=== PATIENT | female | born 1995 | race Caucasian/White ===

== ENCOUNTER 2019-11-25 17:47 | Inpatient (IN) | payer MEDICAID, OTHER ==
[2019-11-25] MEDS ORDERED: IBUPROFEN 600 MG TAB PO STA (18:07)
--- NOTE | 2019-11-25 18:23 | ED ---
Abdominal Pain HPI - General Chief Complaint: Abdominal Pain Stated Complaint: appendicitis/transfer Time Seen by Provider: 11/25/19 17:50 Source: EMS Mode of arrival: EMS - History of Present Illness Initial Comments: The patient is a 24-year-old female who presents as a transfer from [facility]. She arrived there with complaints of abdominal pain, nausea, vomiting, diarrhea since 5 AM this morning. She has pain near her umbilicus which goes down to the right lower quadrant. Pain is graded as 9 out of 10. She had several episodes of nonbilious, and nonbloody vomiting. She had a CT of [facility] which demonstrated acute appendicitis. They did give her D ilmilli Zosyn and was transferred to our facility as they did not have surgical capabilities. The patient arrives to me stating that her pain is 5 out of 10. She is tachycardic and febrile. She denies concern for . No abnormal vaginal bleeding or discharge. Last meal was 5 PM last night. She denies any headaches or visual changes. No cough or hemoptysis. Denies dysuria, hematuria voiding. There are no alleviating, precipitating or modifying factors - Related Data Home Medications Medication Instructions Recorded Confirmed Ranitidine HCl [Zantac] 150 mg PO DAILY PRN 11/25/19 11/25/19 Previous Rx's Medication Instructions Recorded Amoxic-Pot Clav 875-125Mg 1 tab PO Q12HR #10 tab 11/28/19 [Augmentin 875-125] HYDROcodone/APAP 5-325MG [[place] 1 tab PO Q6HR PRN #10 tab 11/28/19 5-325] Vancomycin Oral Solution 250 mg PO Q6HR #240 ml 11/28/19 Allergies Allergy/AdvReac Type Severity Reaction Status Date / Time No Known Allergies Allergy Verified 11/25/19 22:02 Review of Systems ROS Statement: Those systems with pertinent positive or pertinent negative responses have been documented in the HPI. ROS Other: All systems not noted in ROS Statement are negative. Past Medical History Past Medical History: No Reported History History of Any Multi-Drug Resistant Organisms: None Reported Past Surgical History: No Surgical Hx Reported Past Psychological History: No Psychological Hx Reported Smoking Status: Current every day smoker Past Alcohol Use History: Occasional Past Drug Use History: None Reported, Marijuana - Past Family History Mother Family Medical History: No Reported History Father Family Medical History: No Reported History General Exam General appearance: alert, in no apparent distress Head exam: Present: atraumatic, normocephalic, normal inspection Eye exam: Present: normal appearance, PERRL, EOMI. Absent: scleral icterus, conjunctival injection, periorbital swelling ENT exam: Present: normal exam, mucous membranes moist Neck exam: Present: normal inspection. Absent: tenderness, meningismus, lymphadenopathy Respiratory exam: Present: normal lung sounds bilaterally. Absent: respiratory distress, wheezes, rales, rhonchi, stridor Cardiovascular Exam: Present: normal rhythm, tachycardia, normal heart sounds. Absent: systolic murmur, diastolic murmur, rubs, gallop, clicks GI/Abdominal exam: Present: soft, tenderness (RLQ), normal bowel sounds. Absent: distended, guarding, rebound, rigid Extremities exam: Present: normal inspection, full ROM, normal capillary refill. Absent: tenderness, pedal edema, joint swelling, calf tenderness Back exam: Present: normal inspection Neurological exam: Present: alert, oriented X3, CN II-XII intact Psychiatric exam: Present: normal affect, normal mood Skin exam: Present: warm, dry, intact, normal color. Absent: rash Course Vital Signs 11/25/19 17:51 Temperature 100.2 F H Pulse Rate 116 H Respiratory 20 Rate Blood Pressure 153/97 O2 Sat by Pulse 100 Oximetry Medical Decision Making - Medical Decision Making Upon arrival the patient's placed into room 11. A thorough history and physical exam was performed. I did review the patient's transfer record. They did get a CT of the abdomen and pelvis with IV contrast which demonstrates slight thickening of the appendix measuring up to 9 mm in diameter with slight increased attenuation of the periappendiceal fat. Labs reviewed and the patient white count 23,000. I did perform an EKG in the patient as she is tachycardic. I did order Motrin for the patients. I discussed the case with Dr. Bennett who agreed to take the admission. He does call the OR and the patient is taken within 1 hour of her arrival for surgery. - Lab Data Result diagrams: 11/28/19 09:40 11/26/19 07:42 Lab Results 11/25/19 11/25/19 11/25/19 Range/Units 18:06 18:06 18:06 WBC 10.9 H (3.8-10.6) k/uL RBC 5.59 H (3.80-5.40) m/uL Hgb 17.2 H (11.4-16.0) gm/dL Hct 50.0 H (34.0-46.0) % MCV 89.4 (80.0-100.0) fL MCH 30.8 (25.0-35.0) pg MCHC 34.5 (31.0-37.0) g/dL RDW 13.6 (11.5-15.5) % Plt Count 371 (150-450) k/uL Neutrophils % 86 % Lymphocytes % 10 % Monocytes % 2 % Eosinophils % 1 % Basophils % 0 % Neutrophils # 9.4 H (1.3-7.7) k/uL Lymphocytes # 1.0 (1.0-4.8) k/uL Monocytes # 0.3 (0-1.0) k/uL Eosinophils # 0.1 (0-0.7) k/uL Basophils # 0.0 (0-0.2) k/uL Sodium 141 (137-145) mmol/L Potassium 4.4 (3.5-5.1) mmol/L Chloride 108 H (98-107) mmol/L Carbon Dioxide 24 (22-30) mmol/L Anion Gap 9 mmol/L BUN 12 (7-17) mg/dL Creatinine 0.99 (0.52-1.04) mg/dL Est GFR (CKD-EPI)AfAm >90 (>60 ml/min/1.73 sqM) Est GFR (CKD-EPI)NonAf 79 (>60 ml/min/1.73 sqM) Glucose 110 H (74-99) mg/dL Plasma Lactic Acid Henry (0.7-2.0) mmol/L Calcium 9.1 (8.4-10.2) mg/dL Total Bilirubin 0.8 (0.2-1.3) mg/dL AST 45 H (14-36) U/L ALT 54 H (4-34) U/L Alkaline Phosphatase 120 (38-126) U/L Total Protein 7.2 (6.3-8.2) g/dL Albumin 4.2 (3.5-5.0) g/dL Urine HCG, Qual (Not Detectd) Coronavirus (PCR) Not Detected (Not Detectd) 11/25/19 11/26/19 11/26/19 Range/Units 18:59 07:42 07:42 WBC 16.5 H (3.8-10.6) k/uL RBC 4.97 (3.80-5.40) m/uL Hgb 14.9 (11.4-16.0) gm/dL Hct 44.6 (34.0-46.0) % MCV 89.8 (80.0-100.0) fL MCH 29.9 (25.0-35.0) pg MCHC 33.3 (31.0-37.0) g/dL RDW 13.5 (11.5-15.5) % Plt Count 284 (150-450) k/uL Neutrophils % 87 % Lymphocytes % 7 % Monocytes % 5 % Eosinophils % 1 % Basophils % 0 % Neutrophils # 14.4 H (1.3-7.7) k/uL Lymphocytes # 1.1 (1.0-4.8) k/uL Monocytes # 0.8 (0-1.0) k/uL Eosinophils # 0.1 (0-0.7) k/uL Basophils # 0.0 (0-0.2) k/uL Sodium 138 (137-145) mmol/L Potassium 4.2 (3.5-5.1) mmol/L Chloride 107 (98-107) mmol/L Carbon Dioxide 22 (22-30) mmol/L Anion Gap 9 mmol/L BUN 11 (7-17) mg/dL Creatinine 0.85 (0.52-1.04) mg/dL Est GFR (CKD-EPI)AfAm >90 (>60 ml/min/1.73 sqM) Est GFR (CKD-EPI)NonAf >90 (>60 ml/min/1.73 sqM) Glucose 125 H (74-99) mg/dL Plasma Lactic Acid Henry (0.7-2.0) mmol/L Calcium 8.7 (8.4-10.2) mg/dL Total Bilirubin 0.9 (0.2-1.3) mg/dL AST 26 (14-36) U/L ALT 38 H (4-34) U/L Alkaline Phosphatase 89 (38-126) U/L Total Protein 6.3 (6.3-8.2) g/dL Albumin 3.4 L (3.5-5.0) g/dL Urine HCG, Qual Not Detected (Not Detectd) Coronavirus (PCR) (Not Detectd) 11/26/19 11/27/19 Range/Units 09:35 11:47 WBC 12.7 H (3.8-10.6) k/uL RBC 4.40 (3.80-5.40) m/uL Hgb 13.3 (11.4-16.0) gm/dL Hct 39.9 (34.0-46.0) % MCV 90.8 (80.0-100.0) fL MCH 30.3 (25.0-35.0) pg MCHC 33.3 (31.0-37.0) g/dL RDW 13.6 (11.5-15.5) % Plt Count 281 (150-450) k/uL Neutrophils % 76 % Lymphocytes % 17 % Monocytes % 4 % Eosinophils % 2 % Basophils % 0 % Neutrophils # 9.6 H (1.3-7.7) k/uL Lymphocytes # 2.2 (1.0-4.8) k/uL Monocytes # 0.5 (0-1.0) k/uL Eosinophils # 0.2 (0-0.7) k/uL Basophils # 0.0 (0-0.2) k/uL Sodium (137-145) mmol/L Potassium (3.5-5.1) mmol/L Chloride (98-107) mmol/L Carbon Dioxide (22-30) mmol/L Anion Gap mmol/L BUN (7-17) mg/dL Creatinine (0.52-1.04) mg/dL Est GFR (CKD-EPI)AfAm (>60 ml/min/1.73 sqM) Est GFR (CKD-EPI)NonAf (>60 ml/min/1.73 sqM) Glucose (74-99) mg/dL Plasma Lactic Acid Henry 1.2 (0.7-2.0) mmol/L Calcium (8.4-10.2) mg/dL Total Bilirubin (0.2-1.3) mg/dL AST (14-36) U/L ALT (4-34) U/L Alkaline Phosphatase (38-126) U/L Total Protein (6.3-8.2) g/dL Albumin (3.5-5.0) g/dL Urine HCG, Qual (Not Detectd) Coronavirus (PCR) (Not Detectd) - EKG Data EKG Comments: EKG demonstrates a sinus tachycardia with ventricular rate of 117. NH interval 128. QRS 72. QTC of 438. Inverted T-wave in lead 3. No acute ST segment elevations. No signs of WPW of Brugada Disposition Clinical Impression: Appendicitis, Fever, Tachycardia Disposition: ADMITTED IP TO THIS HOSP Condition: Serious Is patient prescribed a controlled substance at d/c from ED?: No Decision to Admit Reason: Admit from EC Decision Date: 11/25/19 Decision Time: 18:51
[2019-11-25 18:33] LABS: Basophils % (A) 0 %; Eosinophils # (A) 0.1 k/uL (0-0.7); Eosinophils % (A) 1 %; HGB 17.2 gm/dL (11.4-16.0); Lymphocytes % (A) 10 %; MCH 30.8 pg (25.0-35.0); MCHC 34.5 g/dL (31.0-37.0); MCV 89.4 fL (80.0-100.0); Monocytes # (A) 0.3 k/uL (0-1.0); Monocytes % (A) 2 %; Neutrophils # (A) 9.4 k/uL (1.3-7.7); Neutrophils % (A) 86 %; Platelet Count 371 k/uL (150-450); RBC 5.59 m/uL (3.80-5.40); RDW 13.6 % (11.5-15.5); WBC 10.9 k/uL (3.8-10.6)
[2019-11-25 18:42] LABS: ALT 54 U/L (4-34); AST 45 U/L (14-36); African American GFR (CKD) >90 (>60 ml/min/1.73 sqM); Albumin 4.2 g/dL (3.5-5.0); Alkaline Phosphatase 120 U/L (38-126); Anion Gap 9 mmol/L; Blood Urea Nitrogen 12 mg/dL (7-17); Calcium 9.1 mg/dL (8.4-10.2); Carbon Dioxide 24 mmol/L (22-30); Chloride 108 mmol/L (98-107); Glucose 110 mg/dL (74-99); Non-African American GFR(CKD) 79 (>60 ml/min/1.73 sqM); Potassium 4.4 mmol/L (3.5-5.1); Sodium 141 mmol/L (137-145); Total Bilirubin 0.8 mg/dL (0.2-1.3); Total Protein 7.2 g/dL (6.3-8.2)
[2019-11-25] MEDS ORDERED: NALOXONE 0.4 MG/ML 1 ML VIAL IV PRN ×2 (18:52→19:49)
[2019-11-25] MEDS ORDERED: fentaNYL (PF) 50 MCG/ML 2 ML AMP ONE (19:04)
[2019-11-25] MEDS ORDERED: SUCCINYLCHOLINE CHLORIDE 100 MG/5 ML SYR IV ONE (19:04)
[2019-11-25] MEDS ORDERED: MIDAZOLAM 2 MG/2 ML VIAL ONE (19:04)
[2019-11-25] MEDS ORDERED: LIDOCAINE 1% INJ 10MG/ML (20 ML MDV) ONE (19:04)
[2019-11-25] MEDS ORDERED: HEPARIN SODIUM,PORCINE 5,000 UNIT/ML 1 ML VIAL ONE (19:04)
[2019-11-25] MEDS ORDERED: KETOROLAC 30 MG/ML 1 ML VIAL ONE (19:04)
[2019-11-25] MEDS ORDERED: ROCURONIUM BROMIDE 10 MG/ML 5 ML VIAL IV ONE (19:04)
[2019-11-25] MEDS ORDERED: NEOSTIGMINE 1 MG/ML 10 ML VIAL ONE (19:04)
[2019-11-25] MEDS ORDERED: PROPOFOL 10 MG/ML 20 ML VIAL IV ONE (19:04)
[2019-11-25] MEDS ORDERED: GLYCOPYRROLATE 0.2 MG/ML 2 ML VIAL ONE (19:04)
[2019-11-25] MEDS ORDERED: HYDROmorphone (PF) 1 MG/ML ONE (19:04)
[2019-11-25] MEDS ORDERED: LACTATED RINGERS 1,000 ML IV ONE ×2 (19:06→19:49)
--- NOTE | 2019-11-25 19:06 | P.GSHP ---
History of Present Illness H&P Date: 11/25/19 Chief Complaint: Right lower quadrant pain This a 24 she'll female who awoke at 5 AM this morning with right lower quadrant pain. Patient was transferred from outside hospital. She is found have acute appendicitis. Past Medical History Past Medical History: No Reported History History of Any Multi-Drug Resistant Organisms: None Reported Past Surgical History: No Surgical Hx Reported Past Psychological History: No Psychological Hx Reported Smoking Status: Current every day smoker Past Alcohol Use History: Occasional Past Drug Use History: None Reported, Marijuana Medications and Allergies Home Medications Medication Instructions Recorded Confirmed Type Meclizine [Antivert] 12.5 mg PO Q6H #10 tablet 07/07/15 07/09/15 Rx Metoclopramide HCl [Reglan] 10 mg PO Q6HR PRN #15 tablet 07/09/15 Rx Allergies Allergy/AdvReac Type Severity Reaction Status Date / Time No Known Allergies Allergy Verified 11/25/19 17:57 Surgical - Exam Vital Signs Temp Pulse Resp BP Pulse Ox 100.2 F H 116 H 20 153/97 100 11/25/19 17:51 11/25/19 17:51 11/25/19 17:51 11/25/19 17:51 11/25/19 17:51 - General well developed, no distress - Eyes PERRL - ENT normal pinna - Neck no masses - Respiratory normal expansion - Cardiovascular Rhythm: regular - Abdomen Marked right lower quadrant tenderness Abdomen: soft Results - Labs 11/25/19 18:06 11/25/19 18:06 Abnormal Lab Results - Last 24 Hours (Table) 11/25/19 11/25/19 Range/Units 18:06 18:06 WBC 10.9 H (3.8-10.6) k/uL RBC 5.59 H (3.80-5.40) m/uL Hgb 17.2 H (11.4-16.0) gm/dL Hct 50.0 H (34.0-46.0) % Neutrophils # 9.4 H (1.3-7.7) k/uL Chloride 108 H (98-107) mmol/L Glucose 110 H (74-99) mg/dL AST 45 H (14-36) U/L ALT 54 H (4-34) U/L Diabetes panel 11/25/19 Range/Units 18:06 Sodium 141 (137-145) mmol/L Potassium 4.4 (3.5-5.1) mmol/L Chloride 108 H (98-107) mmol/L Carbon Dioxide 24 (22-30) mmol/L BUN 12 (7-17) mg/dL Creatinine 0.99 (0.52-1.04) mg/dL Glucose 110 H (74-99) mg/dL Calcium 9.1 (8.4-10.2) mg/dL AST 45 H (14-36) U/L ALT 54 H (4-34) U/L Alkaline Phosphatase 120 (38-126) U/L Total Protein 7.2 (6.3-8.2) g/dL Albumin 4.2 (3.5-5.0) g/dL Calcium panel 11/25/19 Range/Units 18:06 Calcium 9.1 (8.4-10.2) mg/dL Albumin 4.2 (3.5-5.0) g/dL Pituitary panel 11/25/19 Range/Units 18:06 Sodium 141 (137-145) mmol/L Potassium 4.4 (3.5-5.1) mmol/L Chloride 108 H (98-107) mmol/L Carbon Dioxide 24 (22-30) mmol/L BUN 12 (7-17) mg/dL Creatinine 0.99 (0.52-1.04) mg/dL Glucose 110 H (74-99) mg/dL Calcium 9.1 (8.4-10.2) mg/dL Adrenal panel 11/25/19 Range/Units 18:06 Sodium 141 (137-145) mmol/L Potassium 4.4 (3.5-5.1) mmol/L Chloride 108 H (98-107) mmol/L Carbon Dioxide 24 (22-30) mmol/L BUN 12 (7-17) mg/dL Creatinine 0.99 (0.52-1.04) mg/dL Glucose 110 H (74-99) mg/dL Calcium 9.1 (8.4-10.2) mg/dL Total Bilirubin 0.8 (0.2-1.3) mg/dL AST 45 H (14-36) U/L ALT 54 H (4-34) U/L Alkaline Phosphatase 120 (38-126) U/L Total Protein 7.2 (6.3-8.2) g/dL Albumin 4.2 (3.5-5.0) g/dL - Imaging CT scan - abdomen: report reviewed (Thickened appendix) Assessment and Plan Assessment: Acute incised. We'll perform laparoscopic appendectomy
[2019-11-25] MEDS ORDERED: SODIUM CHLORIDE 0.9% 100 ML with ceFAZolin 2,000 MG IV ONE ×2 (19:27)
[2019-11-25] MEDS ORDERED: BUPIVACAIN-EPI 0.25%-1:200,000 30 ML VIAL SQ ONE (19:27)
[2019-11-25] MEDS ORDERED: HYDROcodone/APAP 5-325MG 1 EACH TAB PO PRN (19:49)
[2019-11-25] MEDS ORDERED: traMADol 50 MG TAB PO PRN (19:49)
[2019-11-25] MEDS ORDERED: HYDROmorphone 0.5 MG/0.5 ML SYRINGE IVP PRN (19:49)
--- NOTE | 2019-11-25 19:49 | P.OP ---
Date of Procedure: 11/25/19 Preoperative Diagnosis: Acute appendicitis Postoperative Diagnosis: Acute appendicitis Procedure(s) Performed: Laparoscopic appendectomy Anesthesia: BLESSING Surgeon: Ricardo Bennett Estimated Blood Loss (ml): 5 Pathology: other (Appendix) Condition: stable (.) Disposition: PACU Description of Procedure: The patient's placed on the operating table in the supine position. The patient received general anesthesia. The abdomen was prepped and draped in the usual sterile fashion. The skin was anesthetized 1% local Xylocaine at the trocar sites. Using an 11 blade the skin was incised at the umbilicus. The umbilicus was grasped with a [place] clamp and then a Veress needle was placed into the peritoneal cavity. Position of the Veress needle was confirmed with positive drop test. After adequate insufflation a 5 mm trocar was placed into the peritoneal cavity. The abdomen was further insufflated. And then the laparoscope was placed in the peritoneal cavity. Next a 5 mm trocar was placed in the midline suprapubic position. And then a 10 mm trocar was placed in the midline epigastric position. The patient was rotated with the right side up and in Trendelenburg. The appendix was visualized. The appendix appeared to be inflamed. There was a exudate on the appendix. There was some purulent fluid within the Peritoneal Cavity. This was irrigated and aspirated. The appendix was grasped and then using the Harmonic scissors the mesoappendix was divided. A PDS Endoloop was then placed around the base of the appendix. And then the appendix was divided using Harmonic scissors. The appendix was placed into an Endo Catch and brought out through the 10 mm trocar site. The abdomen was irrigated. There is no bleeding seen. The trochars withdrawn. The skin was closed interrupted 3-0 Monocryl suture. Dermabond dressing was applied. Patient was sent to recovery room in stable condition.
[2019-11-25] MEDS: KETOROLAC 30 MG/ML 1 ML VIAL IVP SCH (21:25)
[2019-11-25] MEDS: ONDANSETRON 4 MG/2 ML VIAL IVP PRN (21:27)
[2019-11-26] MEDS ORDERED: KETOROLAC 30 MG/ML 1 ML VIAL ONE (02:59)
[2019-11-26] MEDS: KETOROLAC 30 MG/ML 1 ML VIAL IVP SCH ×4 (07:41→20:32)
[2019-11-26] MEDS: PIPERACILLIN-TAZOBACTAM 3.375 GM in SODIUM CHLORIDE 0.9% 100 ML IVPB SCH ×5 (07:41→23:42)
[2019-11-26 08:10] LABS: Basophils % (A) 0 %; Eosinophils # (A) 0.1 k/uL (0-0.7); Eosinophils % (A) 1 %; HCT 44.6 % (34.0-46.0); HGB 14.9 gm/dL (11.4-16.0); Lymphocytes # (A) 1.1 k/uL (1.0-4.8); Lymphocytes % (A) 7 %; MCH 29.9 pg (25.0-35.0); MCHC 33.3 g/dL (31.0-37.0); MCV 89.8 fL (80.0-100.0); Mean Platelet Volume 7.2; Monocytes # (A) 0.8 k/uL (0-1.0); Monocytes % (A) 5 %; Neutrophils # (A) 14.4 k/uL (1.3-7.7); Neutrophils % (A) 87 %; Platelet Count 284 k/uL (150-450); RBC 4.97 m/uL (3.80-5.40); RDW 13.5 % (11.5-15.5); WBC 16.5 k/uL (3.8-10.6)
[2019-11-26 08:29] LABS: ALT 38 U/L (4-34); AST 26 U/L (14-36); African American GFR (CKD) >90 (>60 ml/min/1.73 sqM); Albumin 3.4 g/dL (3.5-5.0); Alkaline Phosphatase 89 U/L (38-126); Anion Gap 9 mmol/L; Blood Urea Nitrogen 11 mg/dL (7-17); Calcium 8.7 mg/dL (8.4-10.2); Carbon Dioxide 22 mmol/L (22-30); Chloride 107 mmol/L (98-107); Glucose 125 mg/dL (74-99); Non-African American GFR(CKD) >90 (>60 ml/min/1.73 sqM); Potassium 4.2 mmol/L (3.5-5.1); Sodium 138 mmol/L (137-145); Total Bilirubin 0.9 mg/dL (0.2-1.3); Total Protein 6.3 g/dL (6.3-8.2)
[2019-11-26] MEDS: ENOXAPARIN 40 MG/0.4 ML SYRINGE SQ SCH (08:49)
[2019-11-26] MEDS ORDERED: LACTATED RINGERS 1,000 ML IV SCH (10:30)
[2019-11-26] MEDS: SODIUM CHLORIDE 0.9% 1,000 ML IV SCH ×2 (10:45→20:33)
--- NOTE | 2019-11-26 11:34 | P.PN ---
Progress Note - Text Progress Note Date: 11/26/19 The patient's postoperative day 1 from laparoscopic appendectomy. Patient had significant inflammatory changes of her appendix. With evidence of microperforation. On exam her vital signs appear stable. Her abdomen soft. Her incisions are clean and intact. Status post laparoscopic appendectomy. Patient continue receive IV antibiotic. The patient the risk of postoperative abscess. Her white count 16.5.
--- NOTE | 2019-11-26 13:33 | P.CONS ---
History of Present Illness - Reason for Consult Ruptured appendix - History of Present Illness Patient is a pleasant 74-year-old obese female came in with compensative right lower quadrant abdominal pain severe sharp in nature along with the nausea vomiting which happened yesterday and patient is found to have appendicitis underwent laparotomy found to have a ruptured appendix with peritonitis patient is presently on Zosyn patient didn't pass gas yet, didn't move her bowel yet pain is significantly well controlled at this time. Review of Systems REVIEW OF SYSTEMS: CONSTITUTIONAL: No fever, no malaise, no fatigue. HEENT: No recent visual problems or hearing problems. Denied any sore throat. CARDIOVASCULAR: No chest pain, orthopnea, PND, no palpitations, no syncope. PULMONARY: No shortness of breath, no cough, no hemoptysis. GASTROINTESTINAL: As mentioned in HPI NEUROLOGICAL: No headaches, no weakness, no numbness. HEMATOLOGICAL: Denies any bleeding or petechiae. GENITOURINARY: Denies any burning micturition, frequency, or urgency. MUSCULOSKELETAL/RHEUMATOLOGICAL: Denies any joint pain, swelling, or any muscle pain. ENDOCRINE: Denies any polyuria or polydipsia. The rest of the 14-point review of systems is negative. Past Medical History Past Medical History: No Reported History History of Any Multi-Drug Resistant Organisms: None Reported Past Surgical History: No Surgical Hx Reported Past Psychological History: No Psychological Hx Reported Smoking Status: Current every day smoker Past Alcohol Use History: Occasional Past Drug Use History: None Reported, Marijuana - Past Family History Mother Family Medical History: No Reported History Father Family Medical History: No Reported History Medications and Allergies Home Medications Medication Instructions Recorded Confirmed Type Ranitidine HCl [Zantac] 150 mg PO DAILY PRN 11/25/19 11/25/19 History Allergies Allergy/AdvReac Type Severity Reaction Status Date / Time No Known Allergies Allergy Verified 11/25/19 22:02 Physical Exam Vitals: Vital Signs Temp Pulse Pulse Pulse Resp BP BP 11/26/19 08:59 98.2 F 100 18 124/82 11/26/19 04:55 98.2 F 105 H 18 104/64 11/26/19 00:32 92 18 103/71 11/25/19 23:32 98.2 F 87 18 119/70 11/25/19 22:32 82 18 101/60 11/25/19 22:02 95 20 122/77 11/25/19 21:33 80 18 120/74 11/25/19 21:17 78 18 130/83 11/25/19 21:02 73 20 126/76 11/25/19 20:47 98.6 F 91 20 129/82 11/25/19 20:32 106 H 18 132/83 11/25/19 20:30 77 16 122/74 11/25/19 20:15 89 16 134/65 11/25/19 19:57 97.1 F L 16 133/62 11/25/19 18:49 106 H 22 158/92 11/25/19 17:51 100.2 F H 116 H 20 153/97 Pulse Ox 11/26/19 08:59 92 L 11/26/19 04:55 97 11/26/19 00:32 96 11/25/19 23:32 94 L 11/25/19 22:32 93 L 11/25/19 22:02 94 L 11/25/19 21:33 94 L 11/25/19 21:17 94 L 11/25/19 21:02 94 L 11/25/19 20:47 93 L 11/25/19 20:32 93 L 11/25/19 20:30 99 11/25/19 20:15 94 L 11/25/19 19:57 96 11/25/19 18:49 99 11/25/19 17:51 100 Intake and Output 11/25/19 11/26/19 11/26/19 22:59 06:59 14:59 Intake Total 800 350 Output Total 5 200 100 Balance 795 -200 250 Intake: IV 800 Oral 350 Output: Urine 200 100 Estimated Blood Loss 5 Other: # Voids 1 Weight 122.47 kg PHYSICAL EXAMINATION: GENERAL: The patient is alert and oriented x3, not in any acute distress. Obese HEENT: Pupils are round and equally reacting to light. EOMI. No scleral icterus. No conjunctival pallor. Normocephalic, atraumatic. No pharyngeal erythema. No thyromegaly. CARDIOVASCULAR: S1 and S2 present. No murmurs, rubs, or gallops. PULMONARY: Chest is clear to auscultation, no wheezing or crackles. ABDOMEN: As mentioned in HPI MUSCULOSKELETAL: No joint swelling or deformity. EXTREMITIES: No cyanosis, clubbing, or pedal edema. NEUROLOGICAL: Gross neurological examination did not reveal any focal deficits. SKIN: No rashes. Results CBC & Chem 7: 11/26/19 07:42 11/26/19 07:42 Labs: Abnormal Lab Results - Last 24 Hours (Table) 11/25/19 11/25/19 11/26/19 Range/Units 18:06 18:06 07:42 WBC 10.9 H 16.5 H (3.8-10.6) k/uL RBC 5.59 H (3.80-5.40) m/uL Hgb 17.2 H (11.4-16.0) gm/dL Hct 50.0 H (34.0-46.0) % Neutrophils # 9.4 H 14.4 H (1.3-7.7) k/uL Chloride 108 H (98-107) mmol/L Glucose 110 H (74-99) mg/dL AST 45 H (14-36) U/L ALT 54 H (4-34) U/L Albumin (3.5-5.0) g/dL 11/26/19 Range/Units 07:42 WBC (3.8-10.6) k/uL RBC (3.80-5.40) m/uL Hgb (11.4-16.0) gm/dL Hct (34.0-46.0) % Neutrophils # (1.3-7.7) k/uL Chloride (98-107) mmol/L Glucose 125 H (74-99) mg/dL AST (14-36) U/L ALT 38 H (4-34) U/L Albumin 3.4 L (3.5-5.0) g/dL Assessment and Plan Plan: -Acute appendicitis and ruptured appendix: Patient is already on IV fluids patient is status post appendectomy patient is on Zosyn which is appropriate. Patient's pain is well-controlled DVT prophylaxis as per primary service -Obesity -Nicotine abuse and marijuana use: Counseling was provided
--- NOTE | 2019-11-26 22:23 | P.CONS ---
History of Present Illness - Reason for Consult Consult date: 11/26/19 acute appendicitis Requesting physician: Ricardo Bennett - Chief Complaint abdominal pain and vomiting x 1 day - History of Present Illness Patient is a 24-year female presenting to the ER at [facility] last night as a transfer from [facility] with complaints of abdominal pain nausea and vomiting symptoms started on 5 in the morning patient says she woke up with this pain pain has been mostly in the periumbilical area also radiating to the right lower quadrant recently and the pain to be sharp almost 10 out of 10 with episode of vomiting patient did have a CT of abdominal pelvis completed in the hospital we did shows acute appendicitis patient is here dose of Dilaudid and Zosyn and subsequently was transferred to [facility] for further surgical management patient was evaluated by surgery taken to the OR last night the patient is status post laparoscopic appendectomy with no mention of any perforation patient has been treated with a Zosyn perioperatively infectious was consulted for further management of antibiotic therapy patient on presented to hospital have a fever of 100.2 subsequently afebrile white count was normal initially is up to 16.5 today: The patient was negative urine hCG was negative. Review of Systems Positive point has been mentioned in HPI rest of the systems are negative Past Medical History Past Medical History: No Reported History History of Any Multi-Drug Resistant Organisms: None Reported Past Surgical History: No Surgical Hx Reported Past Psychological History: No Psychological Hx Reported Smoking Status: Current every day smoker Past Alcohol Use History: Occasional Past Drug Use History: None Reported, Marijuana - Past Family History Mother Family Medical History: No Reported History Father Family Medical History: No Reported History Medications and Allergies Home Medications Medication Instructions Recorded Confirmed Type Ranitidine HCl [Zantac] 150 mg PO DAILY PRN 11/25/19 11/25/19 History Allergies Allergy/AdvReac Type Severity Reaction Status Date / Time No Known Allergies Allergy Verified 11/25/19 22:02 Physical Exam Vitals: Vital Signs Temp Pulse Pulse Pulse Resp BP BP 11/26/19 13:51 98.4 F 80 20 141/80 11/26/19 08:59 98.2 F 100 18 124/82 11/26/19 04:55 98.2 F 105 H 18 104/64 11/26/19 00:32 92 18 103/71 11/25/19 23:32 98.2 F 87 18 119/70 11/25/19 22:32 82 18 101/60 11/25/19 22:02 95 20 122/77 11/25/19 21:33 80 18 120/74 11/25/19 21:17 78 18 130/83 11/25/19 21:02 73 20 126/76 11/25/19 20:47 98.6 F 91 20 129/82 11/25/19 20:32 106 H 18 132/83 11/25/19 20:30 77 16 122/74 11/25/19 20:15 89 16 134/65 11/25/19 19:57 97.1 F L 16 133/62 11/25/19 18:49 106 H 22 158/92 11/25/19 17:51 100.2 F H 116 H 20 153/97 Pulse Ox 11/26/19 13:51 95 11/26/19 08:59 92 L 11/26/19 04:55 97 11/26/19 00:32 96 11/25/19 23:32 94 L 11/25/19 22:32 93 L 11/25/19 22:02 94 L 11/25/19 21:33 94 L 11/25/19 21:17 94 L 11/25/19 21:02 94 L 11/25/19 20:47 93 L 11/25/19 20:32 93 L 11/25/19 20:30 99 11/25/19 20:15 94 L 11/25/19 19:57 96 11/25/19 18:49 99 11/25/19 17:51 100 Intake and Output 11/26/19 11/26/19 11/26/19 06:59 14:59 22:59 Intake Total 770 Output Total 200 550 Balance -200 220 Intake: Oral 770 Output: Urine 200 550 GENERAL DESCRIPTION: Middle-aged female lying in bed, no distress. No tachypnea or accessory muscle of respiration use. HEENT: Shows Pallor , no scleral icterus. Oral mucous membrane is dry. NECK: Trachea central, no thyromegaly. LUNGS: Unlabored breathing. Clear to auscultation anteriorly. No wheeze or crackle. HEART: S1, S2, regular rate and rhythm. ABDOMEN: Soft, mild lower quadrant tenderness , guarding or rigidity EXTREMITIES: No edema of feet. SKIN: No rash, no masses palpable. NEUROLOGICAL: The patient is awake, alert, oriented x3, mood and affect normal. Results CBC & Chem 7: 11/26/19 07:42 11/26/19 07:42 Labs: Abnormal Lab Results - Last 24 Hours (Table) 11/25/19 11/25/19 11/26/19 Range/Units 18:06 18:06 07:42 WBC 10.9 H 16.5 H (3.8-10.6) k/uL RBC 5.59 H (3.80-5.40) m/uL Hgb 17.2 H (11.4-16.0) gm/dL Hct 50.0 H (34.0-46.0) % Neutrophils # 9.4 H 14.4 H (1.3-7.7) k/uL Chloride 108 H (98-107) mmol/L Glucose 110 H (74-99) mg/dL AST 45 H (14-36) U/L ALT 54 H (4-34) U/L Albumin (3.5-5.0) g/dL 11/26/19 Range/Units 07:42 WBC (3.8-10.6) k/uL RBC (3.80-5.40) m/uL Hgb (11.4-16.0) gm/dL Hct (34.0-46.0) % Neutrophils # (1.3-7.7) k/uL Chloride (98-107) mmol/L Glucose 125 H (74-99) mg/dL AST (14-36) U/L ALT 38 H (4-34) U/L Albumin 3.4 L (3.5-5.0) g/dL Assessment and Plan Assessment: patient present hospital with acute appendicitis in this patient status post laparoscopic appendectomy with evidence of any perforation or second peritonitis the patient has not been antibiotic in the recent past more likely will need to cover for enteric gram-negative both aerobes and anaerobes such as E. coli and related pathogen (1) Appendicitis Current Visit: Yes Status: Acute Code(s): K37 - UNSPECIFIED APPENDICITIS SNOMED Code(s): 86293793 Plan: 1-we will continue patient on Zosyn 3.375 g every 8 hours while inpatient and transitioned over antibiotic on discharge 2-gentle IV fluid We will follow on clinical condition and cultures to further adjust medication if needed Thank you for this consultation we will follow the patient along with you Time with Patient: Greater than 30
[2019-11-26] MEDS: ACETAMINOPHEN TAB 325 MG TAB PO PRN (23:42)
[2019-11-27] MEDS: KETOROLAC 30 MG/ML 1 ML VIAL IVP SCH ×3 (03:53→16:30)
[2019-11-27] MEDS: SODIUM CHLORIDE 0.9% 1,000 ML IV SCH ×2 (06:49→19:55)
[2019-11-27] MEDS: PIPERACILLIN-TAZOBACTAM 3.375 GM in SODIUM CHLORIDE 0.9% 100 ML IVPB SCH ×2 (08:27→16:40)
[2019-11-27] MEDS: ENOXAPARIN 40 MG/0.4 ML SYRINGE SQ SCH (08:28)
--- NOTE | 2019-11-27 11:25 | P.PN ---
Subjective Progress Note Date: 11/27/19 Principal diagnosis: - Reason for Consult Ruptured appendix - History of Present Illness Patient is a pleasant 74-year-old obese female came in with compensative right lower quadrant abdominal pain severe sharp in nature along with the nausea vomiting which happened yesterday and patient is found to have appendicitis underwent laparotomy found to have a ruptured appendix with peritonitis patient is presently on Zosyn patient didn't pass gas yet, didn't move her bowel yet pain is significantly well controlled at this time. 11/27/2019 Patient was seen in follow-up today with no acute overnight issues. Patient is postop from a laparoscopic appendectomy. Infectious disease is following and patient remains on IV Zosyn. Patient's white blood count was slightly elevated at 16.5 yesterday and will repeat CBC. Patient is tolerating clear liquids and was given a yogurt today and states she is passing gas and did have a bowel movement this morning. No reports of chest pain, shortness of breath, or palpitations. Patient is afebrile. No reports of nausea or vomiting and patient is tolerating diet. Patient has an incentive spirometer at the bedside and discussed with her about continuing to use at least 10 times every hour while awake. Verbalized understanding. Objective - Vital Signs Vital signs: Vital Signs Temp 98.2 F 11/27/19 08:40 Pulse 85 11/27/19 08:40 Resp 18 11/27/19 08:40 BP 151/90 11/27/19 08:40 Pulse Ox 96 11/27/19 08:40 Intake & Output 11/26/19 11/27/19 11/27/19 18:59 06:59 18:59 Intake Total 1130 Output Total 1150 450 Balance -20 -450 Intake: Oral 1130 Output: Urine 1150 450 Other: Voiding Method Toilet - Exam GENERAL: The patient is alert and oriented x3, not in any acute distress. Obese HEENT: Pupils are round and equally reacting to light. EOMI. No scleral icterus. No conjunctival pallor. Normocephalic, atraumatic. No pharyngeal erythema. No thyromegaly. CARDIOVASCULAR: S1 and S2 present. No murmurs, rubs, or gallops. PULMONARY: Chest is clear to auscultation, no wheezing or crackles. ABDOMEN: Soft, obese, minimal tenderness noted on palpation MUSCULOSKELETAL: No joint swelling or deformity. EXTREMITIES: No cyanosis, clubbing, or pedal edema. NEUROLOGICAL: Gross neurological examination did not reveal any focal deficits. SKIN: No rashes. - Labs CBC & Chem 7: 11/26/19 07:42 11/26/19 07:42 Assessment and Plan Assessment: -Acute appendicitis and ruptured appendix with peritonitis: Status post laparotomy with appendectomy. -Leukocytosis likely secondary to above. Patient is currently on Zosyn and will repeat CBC today. Infectious disease is following -Obesity -Nicotine abuse and marijuana use: Counseling was provided
[2019-11-27 12:16] LABS: Basophils % (A) 0 %; Eosinophils # (A) 0.2 k/uL (0-0.7); Eosinophils % (A) 2 %; HCT 39.9 % (34.0-46.0); HGB 13.3 gm/dL (11.4-16.0); Lymphocytes # (A) 2.2 k/uL (1.0-4.8); Lymphocytes % (A) 17 %; MCH 30.3 pg (25.0-35.0); MCHC 33.3 g/dL (31.0-37.0); MCV 90.8 fL (80.0-100.0); Mean Platelet Volume 7.5; Monocytes # (A) 0.5 k/uL (0-1.0); Monocytes % (A) 4 %; Neutrophils # (A) 9.6 k/uL (1.3-7.7); Neutrophils % (A) 76 %; Platelet Count 281 k/uL (150-450); RDW 13.6 % (11.5-15.5); WBC 12.7 k/uL (3.8-10.6)
--- NOTE | 2019-11-27 12:25 | P.PN ---
Progress Note - Text Progress Note Date: 11/27/19 The patient continues to improve. She still has a elevated white count. On exam her vital signs are stable. Her and soft. History of perforated appendicitis. Patient received IV and brought through into the discharge home tomorrow.
--- NOTE | 2019-11-27 14:37 | PN ---
PROGRESS NOTE DATE OF SERVICE: 11/27/2019 REASON FOR FOLLOWUP: Acute appendicitis. INTERVAL HISTORY: The patient is currently afebrile. She is complaining of more pain today, though and some pain in the low back. No chest pain. No shortness of breath or cough. No vomiting or diarrhea. PHYSICAL EXAMINATION: Blood pressure 151/90 with a pulse of 85, temperature 98.2. She is 96% on room air. General description is a middle-aged female, lying in bed in no distress. RESPIRATORY SYSTEM: Unlabored breathing, clear to auscultation anteriorly. HEART: S1, S2. Regular rate and rhythm. ABDOMEN: Soft, no tenderness. LABS: Hemoglobin 13.8, white count 5.7. Blood culture has been negative. DIAGNOSTIC IMPRESSION AND PLAN: Patient with acute appendicitis, status post laparoscopic appendectomy. White count showing a downward trend, while normalized, complaining of abdominal pain. Keep the patient on IV Zosyn while waiting for condition to stabilize and monitor clinical course closely. MMODL / IJN: [id number] /
[2019-11-27] MEDS: ACETAMINOPHEN TAB 325 MG TAB PO PRN (19:53)
[2019-11-28] MEDS: PIPERACILLIN-TAZOBACTAM 3.375 GM in SODIUM CHLORIDE 0.9% 100 ML IVPB SCH ×2 (00:14→08:09)
[2019-11-28] MEDS: SODIUM CHLORIDE 0.9% 1,000 ML IV SCH (05:34)
[2019-11-28] MEDS: ONDANSETRON 4 MG/2 ML VIAL IVP PRN (06:12)
[2019-11-28] MEDS: ENOXAPARIN 40 MG/0.4 ML SYRINGE SQ SCH (08:09)
--- NOTE | 2019-11-28 09:48 | P.PN ---
Subjective Patient is a pleasant 74-year-old obese female came in with compensative right lower quadrant abdominal pain severe sharp in nature along with the nausea vomiting which happened yesterday and patient is found to have appendicitis underwent laparotomy found to have a ruptured appendix with peritonitis patient is presently on Zosyn patient didn't pass gas yet, didn't move her bowel yet pain is significantly well controlled at this time. 11/27/2019 Patient was seen in follow-up today with no acute overnight issues. Patient is postop from a laparoscopic appendectomy. Infectious disease is following and patient remains on IV Zosyn. Patient's white blood count was slightly elevated at 16.5 yesterday and will repeat CBC. Patient is tolerating clear liquids and was given a yogurt today and states she is passing gas and did have a bowel mo vement this morning. No reports of chest pain, shortness of breath, or palpitations. Patient is afebrile. No reports of nausea or vomiting and patient is tolerating diet. Patient has an incentive spirometer at the bedside and discussed with her about continuing to use at least 10 times every hour while awake. Verbalized understanding. 11/28/2019 Today patient is lying in bed comfortable. Denies abdominal pain. She is tolerating diet well. She denies any illicit Other symptoms. No chest pain or dyspnea. She is hemodynamically stable. WBC slightly elevated 12.7, we ordered another CBC for follow-up of her WBC. Patient was instructed about her problem and the need to follow-up with her PCP to check her blood test including CBC and she agrees Objective - Vital Signs Vital signs: Vital Signs Temp 98.4 F 11/28/19 05:52 Pulse 90 11/28/19 05:52 Resp 18 11/28/19 05:52 BP 173/82 11/28/19 05:52 Pulse Ox 96 11/28/19 05:52 Intake & Output 11/27/19 11/28/19 11/28/19 18:59 06:59 18:59 Intake Total 1100 1200 Output Total 1600 2 Balance -500 1198 Intake: Intake, IV Titration 1100 1200 Amount Piperacillin-Tazobactam 3 100 .375 gm In Sodium Chloride 0.9% 100 ml @ 25 mls/hr IVPB Q8H [facility] Rx#: [id number] Sodium Chloride 0.9% 1, 1000 1200 000 ml @ 100 mls/hr IV . Q10H [facility] Rx#:[id number] Output: Urine 1600 2 Other: Voiding Method Toilet Toilet # Voids 1 - Exam GENERAL: The patient is alert and oriented x3, not in any acute distress. Obese HEENT: Pupils are round and equally reacting to light. EOMI. No scleral icterus. No conjunctival pallor. Normocephalic, atraumatic. No pharyngeal erythema. No thyromegaly. CARDIOVASCULAR: S1 and S2 present. No murmurs, rubs, or gallops. PULMONARY: Chest is clear to auscultation, no wheezing or crackles. -ABDOMEN: Soft, obese, no tenderness MUSCULOSKELETAL: No joint swelling or deformity. EXTREMITIES: No cyanosis, clubbing, or pedal edema. NEUROLOGICAL: Gross neurological examination did not reveal any focal deficits. SKIN: No rashes. - Labs CBC & Chem 7: 11/27/19 11:47 11/26/19 07:42 Labs: Abnormal Lab Results - Last 24 Hours (Table) 11/27/19 Range/Units 11:47 WBC 12.7 H (3.8-10.6) k/uL Neutrophils # 9.6 H (1.3-7.7) k/uL Microbiology - Last 24 Hours (Table) 11/26/19 09:35 Blood Culture - Preliminary Blood No Growth after 24 hours Assessment and Plan Assessment: -Acute appendicitis and ruptured appendix with peritonitis: Status post laparotomy with appendectomy. Patient felt closely by surgery the primary team. -Leukocytosis likely secondary to above. Patient is currently on Zosyn and will repeat CBC today. Infectious disease is following -Obesity -Nicotine abuse and marijuana use: Counseling was provided Recommend patient follow up with her PCP in one week, patient was instructed with the same Thank you for consulting us
[2019-11-28 10:04] LABS: HCT 37.8 % (34.0-46.0); HGB 12.5 gm/dL (11.4-16.0); MCH 29.9 pg (25.0-35.0); MCV 90.5 fL (80.0-100.0); Mean Platelet Volume 7.3; Platelet Count 265 k/uL (150-450); RBC 4.18 m/uL (3.80-5.40); RDW 13.5 % (11.5-15.5); WBC 10.5 k/uL (3.8-10.6)
[2019-11-28] MEDS ORDERED: CHERRY FLAVOR 60 ML BOTTLE PO SCH (12:00)
[2019-11-28] MEDS ORDERED: VANCOMYCIN ORAL SOLUTION 250 MG/5 ML BOTTLE PO SCH (12:00)
[2019-11-28 12:24] VITALS: BP 172/88; PULSE 81; RESP 19; TEMP 97.8
--- NOTE | 2019-11-28 12:34 | P.PN ---
Progress Note - Text Progress Note Date: 11/28/19 The patient states she feels well and wished to go home. Patient's had diarrhea. Apparently her C. diff test is positive. On exam her vital signs are stable. Her abdomen soft. Incision sites are clean and intact. I recommend the patient stay for treatment of her C. diff. However she is ad amant that she wants to leave today. I have called Dr. chen to see if there is an oral antibiotic that would be suitable for discharge. We will await his input prior to discharge.
--- NOTE | 2019-11-28 17:14 | PN ---
PROGRESS NOTE DATE OF SERVICE: 11/28/2019 REASON FOR FOLLOWUP: 1. Acute appendicitis. 2. C difficile colitis. INTERVAL HISTORY: The patient is currently afebrile. Apparently the patient did have significant diarrhea last evening for which the patient did have stool for C difficile checked which came back positive. The patient was started on oral vancomycin. Diarrhea slightly slowed down as of this morning. The patient denies having any chest pain or shortness of breath or cough. No abdominal pain. PHYSICAL EXAMINATION: Blood pressure 172/88 with a pulse of 81. Temperature 97.8. She is 96% on room air. General description is a middle-aged female lying in bed in no distress. Respiratory system: Unlabored breathing. Clear to auscultation anteriorly. Heart S1, S2. Regular rate and rhythm. Abdomen soft, no tenderness. LABS: Hemoglobin is 12.5, white count 10.5. DIAGNOSTIC IMPRESSION AND PLAN: 1. Patient with acute appendicitis purulence, status post appendectomy. The patient did well on Zosyn, unfortunately developing C difficile colitis. We will cut back on antibiotic. Do a short course of oral Augmentin for appendicitis. 2. C difficile colitis. The patient will get a prescription for vancomycin 250 p.o. q.6 hours for 12 days. She has been instructed to increase probiotic and yogurt intake. If any worsening diarrhea, to let me know. 3. Questions and concerns were answered. MMODL / IJN: [id number] /
== END 2019-11-28 15:30 | disposition home or self-care (01) | DRG 339 ==
LOC: SUPCPDRO 17:47 → EC 17:47 → 6PED 18:52 → OBSVTOIN 11-27 13:48 → 5NMEDONC 11-27 17:49
PROVIDERS: ADMIT Surgery; ATTEND Surgery
PROC: 0DTJ4ZZ Resection of Appendix, Percutaneous Endoscopic Approach (ICD-10-PCS; principal; 2019-11-25 19:00)
DX: K35.32 Acute appendicitis with perforation, localized peritonitis, and gangrene, without abscess (principal); A04.72 Enterocolitis due to Clostridium difficile, not specified as recurrent; Z68.41 Body mass index [BMI] 40.0-44.9, adult; Z11.59 Encounter for screening for other viral diseases; E66.9 Obesity, unspecified; K21.9 Gastro-esophageal reflux disease without esophagitis; M54.5 Low back pain; F17.210 Nicotine dependence, cigarettes, uncomplicated; Z71.6 Tobacco abuse counseling
CPT/HCPCS: 36415; 80053; 81025; 83605; 85025; 85027; 87040; 87324; 87635; 88304; 93005; 99285

== ENCOUNTER → 2023-12-30 | Outpatient (CLI) | payer OTHER ==
--- NOTE | 2023-12-30 12:03 | MR ---
EXAMINATION TYPE: MR thoracic spine wo con DATE OF EXAM: 12/30/2023, MRI cervical spine 02/11/2023 COMPARISON: NONE CLINICAL INDICATION: Female, 28 years old with history of M54.6 Thoracic back pain; Technique: Multiplanar multisequence noncontrast MRI of the thoracic spine. FINDINGS: Vertebral body height and disc signal and marrow signal maintained. No compression deformities. No evidence of disc herniation, canal stenosis, or foraminal encroachment. The visualized spinal cord demonstrates normal signal pattern. Question gallstones. Many paraspinal area demonstrates no abnormal signal. IMPRESSION: 1. No evidence of disc herniation, degenerative disc disease or canal stenosis. 2. Probable gall stones 3. No abnormal signal within the visualized thoracic spinal cord. Areas of increased signal within th e cervical spinal cord was likely is artifactual but is only partially included in the [id number]. If clinically warranted a cervical spine MRI could be obtained. Prior outside MRI of 2022 has been r eviewed with no definite abnormal signal within the spinal cord at that time.
== END | disposition home or self-care (01) ==
LOC: RADMRIMAIN 10:58
PROVIDERS: ATTEND Psychiatry & Neurology Neurology
DX: M54.6 Pain in thoracic spine (principal)
CPT/HCPCS: 72146

== ENCOUNTER 2024-07-02 07:04 | Day surgery (SDC) | payer OTHER ==
[~2024-07-02 07:04] MED LIST: SODIUM CHLORIDE 0.9% 1,000 ML IV SCH
[2024-07-02 07:41] VITALS: BP 123/65; PULSE 65; RESP 16; TEMP 98.2
[2024-07-02] MEDS: SODIUM CHLORIDE 0.9% 500 ML 500 ML IV ONE ×2 (07:54→08:10)
--- NOTE | 2024-07-02 19:13 | P.EPPROC ---
- EP Procedure Note Electrophysiology Procedure Note: Diagnosis Recurrent presyncope Baseline twelve-lead EKG shows sinus mechanism normal CA narrow QRS normal ST segments normal QT interval Tilt table test per protocol Baseline heart rate 56 beats minute, baseline blood pressure 127/69 mmHg Patient was tilted upright in angle of 70 degrees per protocol There was an immediate drop in her blood pressure to 110/66 mmHg. Her blood pressure has remained between 100 110 mmHg for the first half and then started dipping in between 95 to 100 mmHg Heart rates remained in the 70s She complained of generalized weakness nausea and a feeling of warmth At no point was there a sudden drop in blood pressure Impression normal twelve-lead EKG No evidence for neurocardiogenic syncope orthostatic drop in blood pressure by about 10 to 20 mmHg with prolonged standing or tilt table test Consider mild dysautonomic response (Patient is on labetalol 400 mg twice daily)
== END 2024-07-02 09:18 | disposition home or self-care (01) ==
LOC: CATHEP 07:04
PROVIDERS: ATTEND Internal Medicine Clinical Cardiac Electrophysiology
DX: I95.1 Orthostatic hypotension (principal); I10 Essential (primary) hypertension; E03.9 Hypothyroidism, unspecified; E55.9 Vitamin D deficiency, unspecified
CPT/HCPCS: 81025; 93660